=== PATIENT | female | born 1980 ===

== ENCOUNTER 2024-06-18 11:15 | Inpatient (IN) | payer OTHER ==
[~2024-06-18] VITALS: Ht 162.6 cm; Wt 48.1 kg
[2024-06-18 13:23] VITALS: BP 123/81
[2024-06-27] MEDS ORDERED: THROMBIN,HU/FIBRINOGEN/CALCIUM 10 ML SYRINGE TOP ONE (10:00)
[2024-06-27] MEDS ORDERED: VISTASEAL DUAL APPICATOR 1 EACH APPL TOP ONE (10:00)
[2024-06-27] MEDS ORDERED: METRONIDAZOLE/SODIUM CHLORIDE 500 MG/100 ML PIGGYBACK IV ONE (10:00)
[2024-06-27] MEDS ORDERED: BUPIVACAINE HCL 30 ML VIAL IJ ONE (10:00)
[2024-06-27] MEDS ORDERED: CEFTRIAXONE SODIUM 2,000 MG VIAL IV ONE (10:00)
[2024-06-27] MEDS ORDERED: LIDOCAINE HCL 1%/EPINEPHRINE 20ML VIAL IJ ONE (10:00)
[2024-06-27 10:15] LABS: RH POSITIVE
[2024-06-27] MEDS ORDERED: SUGAMMADEX SODIUM 200 MG/2 ML VIAL IV ONE (14:45)
[2024-06-27] MEDS ORDERED: ONDANSETRON HCL 2 MG/ML VIAL IM SCH (14:55)
[2024-06-27] MEDS ORDERED: RINGERS SOLUTION,LACTATED 1,000 ML IV SCH (14:55)
[2024-06-27] MEDS ORDERED: CELECOXIB 200 MG CAPSULE PO STA ×2 (14:58→18:34)
[2024-06-27] MEDS ORDERED: GABAPENTIN 100 MG CAPSULE PO STA (14:59)
[2024-06-27] MEDS ORDERED: ACETAMINOPHEN 325 MG TABLET PO STA (14:59)
[2024-06-27] MEDS ORDERED: MORPHINE SULFATE 4 MG/ML VIAL IV ONE ×2 (15:45→16:15)
[2024-06-27] MEDS ORDERED: OxyCODONE HCL 5 MG TABLET (ROXICODONE) PO PRN (16:15)
[2024-06-27] MEDS ORDERED: POLYETHYLENE GLYCOL 3350 17 GM BLIST.PACK PO SCH (17:00)
[2024-06-27] MEDS ORDERED: CLINDAMYCIN PHOSPHATE 150 MG/ML (900mg) IV SCH (17:00)
[2024-06-27] MEDS ORDERED: SIMETHICONE 125 MG CAPSULE PO SCH (17:00)
[2024-06-27] MEDS ORDERED: HYOSCYAMINE SULFATE 0.125 MG TAB.SUBL SL SCH (17:00)
[2024-06-27] MEDS ORDERED: METOCLOPRAMIDE HCL 5 MG/ML VIAL IV SCH (17:00)
[2024-06-27] MEDS ORDERED: MORPHINE SULFATE 4 MG/ML CARTRIDGE IV PRN (17:00)
[2024-06-27 17:13] LABS: HEMATOCRIT 37.5 % (36.0-45.00); HEMOGLOBIN 12.9 g/dL (12.0-15.00); MEAN CORPUSCULAR HEMOGLOBIN 28.3 pg (27.00-32.0); MEAN CORPUSCULAR HGB CONC 34.5 g/dl (32.0-36.0); PLATELET COUNT 210 K/uL (150-450); RED BLOOD COUNT 4.57 M/uL (4.00-6.00); RED CELL DISTRIBUTION WIDTH 14.9 % (11.5-14.5)
[2024-06-27 17:33] VITALS: BP 123/81
[2024-06-27 17:34] LABS: CALCIUM 8.8 mg/dL (8.5-10.1); CREATININE SERUM 1.06 mg/dL (0.55-1.02); GFR 57.13; POTASSIUM 4.41 mEq/L (3.5-5.1)
[2024-06-27] MEDS ORDERED: CELECOXIB 200 MG CAPSULE PO SCH (18:34)
[2024-06-27] MEDS ORDERED: GABAPENTIN 100 MG CAPSULE PO PRN (18:45)
[2024-06-27] MEDS ORDERED: PROMETHAZINE HCL 25 MG/ML AMPUL IV PRN (19:45)
[2024-06-27 19:57] LABS: HEMATOCRIT 35.3 % (36.0-45.00); HEMOGLOBIN 12.3 g/dL (12.0-15.00); MEAN CELL VOLUME 80.6 fL (80.00-100.00); MEAN CORPUSCULAR HEMOGLOBIN 28.1 pg (27.00-32.0); MEAN CORPUSCULAR HGB CONC 34.9 g/dl (32.0-36.0); PLATELET COUNT 215 K/uL (150-450); RED BLOOD COUNT 4.38 M/uL (4.00-6.00); RED CELL DISTRIBUTION WIDTH 14.8 % (11.5-14.5)
[2024-06-27] MEDS ORDERED: ACETAMINOPHEN 500 MG GEL..CAP PO SCH (20:00)
[2024-06-27] MEDS ORDERED: FAMOTIDINE/PF 20 MG/2 ML VIAL IV PUSH SCH (21:00)
[2024-06-28 02:29] VITALS: BP 121/73
[2024-06-28 05:06] LABS: HEMATOCRIT 34.1 % (36.0-45.00); HEMOGLOBIN 11.9 g/dL (12.0-15.00); MEAN CELL VOLUME 80.9 fL (80.00-100.00); MEAN CORPUSCULAR HEMOGLOBIN 28.2 pg (27.00-32.0); MEAN CORPUSCULAR HGB CONC 34.9 g/dl (32.0-36.0); PLATELET COUNT 223 K/uL (150-450); RED BLOOD COUNT 4.22 M/uL (4.00-6.00); RED CELL DISTRIBUTION WIDTH 14.7 % (11.5-14.5)
[2024-06-28 05:32] LABS: CALCIUM 8.1 mg/dL (8.5-10.1); CREATININE SERUM 0.96 mg/dL (0.55-1.02); GFR 64.05; POTASSIUM 3.78 mEq/L (3.5-5.1)
[2024-06-28 08:31] VITALS: BP 113/64
[2024-06-28] MEDS ORDERED: LACTOBACILLUS ACIDOPHILUS 1 CAP CAP PO SCH (09:00)
[2024-06-28] MEDS ORDERED: GABAPENTIN 100 MG CAPSULE PO SCH (09:00)
[2024-06-28] MEDS ORDERED: PANTOPRAZOLE SODIUM 40 MG/VIAL VIAL IV SCH (14:05)
[2024-06-28 16:38] VITALS: BP 101/63
[2024-06-28] MEDS ORDERED: SUCRALFATE 1 G TABLET PO SCH (17:00)
[2024-06-28] MEDS ORDERED: ENOXAPARIN SODIUM 40 MG/0.4 ML SYRINGE SUBCUTANEO SCH (17:00)
[2024-06-29 01:12] VITALS: BP 100/62
[2024-06-29 08:47] VITALS: BP 107/74
[2024-06-29] MEDS ORDERED: ENOXAPARIN SODIUM 40 MG/0.4 ML SYRINGE SUBCUTANEO SCH (09:00)
== END 2024-06-29 14:29 | disposition home or self-care (01) | DRG 742 ==
LOC: O/R 06-27 05:20 → OB/GYN 06-27 11:15
PROVIDERS: Surgery; Urology; ADMIT Obstetrics & Gynecology Gynecology; ATTEND Obstetrics & Gynecology Gynecology
PROC: 0DNW4ZZ Release Peritoneum, Percutaneous Endoscopic Approach (ICD-10-PCS; 2024-06-27)
PROC: 0TN74ZZ Release Left Ureter, Percutaneous Endoscopic Approach (ICD-10-PCS; 2024-06-27)
PROC: 0TN64ZZ Release Right Ureter, Percutaneous Endoscopic Approach (ICD-10-PCS; 2024-06-27)
PROC: 0T788DZ Dilation of Bilateral Ureters with Intraluminal Device, Via Natural or Artificial Opening Endoscopic (ICD-10-PCS; 2024-06-27)
PROC: 0FT44ZZ Resection of Gallbladder, Percutaneous Endoscopic Approach (ICD-10-PCS; 2024-06-27)
PROC: 0DBW4ZZ Excision of Peritoneum, Percutaneous Endoscopic Approach (ICD-10-PCS; 2024-06-27)
PROC: 0DTN4ZZ Resection of Sigmoid Colon, Percutaneous Endoscopic Approach (ICD-10-PCS; 2024-06-27)
PROC: 0DBP4ZZ Excision of Rectum, Percutaneous Endoscopic Approach (ICD-10-PCS; 2024-06-27)
PROC: 0DTJ4ZZ Resection of Appendix, Percutaneous Endoscopic Approach (ICD-10-PCS; 2024-06-27)
PROC: 0DJD8ZZ Inspection of Lower Intestinal Tract, Via Natural or Artificial Opening Endoscopic (ICD-10-PCS; 2024-06-27)
PROC: 0UT24ZZ Resection of Bilateral Ovaries, Percutaneous Endoscopic Approach (ICD-10-PCS; principal; 2024-06-27 11:15)
PROC: 0UT94ZZ Resection of Uterus, Percutaneous Endoscopic Approach (ICD-10-PCS; 2024-06-27 11:15)
PROC: 0UT74ZZ Resection of Bilateral Fallopian Tubes, Percutaneous Endoscopic Approach (ICD-10-PCS; 2024-06-27 11:15)
DX: N80.103 Endometriosis of bilateral ovaries, unspecified depth (principal); K80.10 Calculus of gallbladder with chronic cholecystitis without obstruction; N80.03 Adenomyosis of the uterus; N80.2 Endometriosis of fallopian tube; N84.0 Polyp of corpus uteri; N80.519 Endometriosis of the rectum, unspecified depth; N80.529 Endometriosis of the sigmoid colon, unspecified depth; N80.549 Endometriosis of the appendix, unspecified depth; N80.A61 Endometriosis of right ureter, unspecified depth; N72 Inflammatory disease of cervix uteri; K66.0 Peritoneal adhesions (postprocedural) (postinfection); Z20.822 Contact with and (suspected) exposure to COVID-19